=== PATIENT | female | born 1940 | race Two or more races ===

== ENCOUNTER 2019-01-22 21:38 | Emergency (ER) | payer OTHER ==
[~2019-01-22] VITALS: Ht 160 cm; Wt 81.6 kg
[2019-01-22] MEDS ORDERED: ALPRAZOLAM ODT1 MG (21:51)
[2019-01-22] MEDS ORDERED: KAPVAY0.1 MG (21:52)
[2019-01-22] MEDS ORDERED: ZESTRIL20 MG (21:53)
[2019-01-22] MEDS ORDERED: HEARTBURN RELI150 MG PO (21:54)
[2019-01-22] MEDS ORDERED: SERTRALINE20 MG/1 ML (21:56)
[2019-01-22] MEDS ORDERED: ANTI-GAS166 MG (21:56)
[2019-01-22] MEDS ORDERED: DIPHENHYDRAMINE25 M2 (21:57)
[2019-01-22] MEDS ORDERED: MONTELUKAST SODI4 M1 (21:58)
[2019-01-22] MEDS ORDERED: ARICEPT10 MG (21:58)
[2019-01-22] MEDS ORDERED: FOLGARD TABLET1 EACH (21:59)
[2019-01-22] MEDS ORDERED: FEXOFENADINE (22:00)
[2019-01-22] MEDS ORDERED: LEVADOPA (22:02)
[2019-01-22] MEDS ORDERED: LODOSYN25 MG (22:02)
[2019-01-23] MEDS ORDERED: IPRAT-ALBUT 0.5-3 ML IH ×2 (08:12→08:14)
[2019-01-23] MEDS ORDERED: XOPENEX0.63 MG/3 IH ×2 (08:12→08:14)
[2019-01-23] MEDS ORDERED: ZITHROMAX500 MG PO ×2 (08:13→08:14)
[2019-01-23] MEDS ORDERED: ZYNCOF 20-400120 ML PO (08:13)
== END 2019-01-23 10:55 | disposition home or self-care (01) ==
LOC: ER 21:38
DX: J45.998 Other asthma (principal)